=== PATIENT | male | born 1995 | race Two or more races ===

== ENCOUNTER 2025-03-12 10:26 | Emergency (ER) | payer SELFPAY ==
[2025-03-12 10:27] VITALS: BMI 35.4
[2025-03-12 10:47] VITALS: BP 147/86; PULSE 49; RESP 17; TEMP 36.8; O2SAT 98
--- NOTE | 2025-03-12 10:54 | PD.EDDENTL ---
ED Dental RME/HPI General Chief complaint: Dental/Oral/Throat Stated complaint: SHARP, THROBBING PAIN L) SIDE OF MOUTH Time Seen by Provider: 03/12/25 10:33 Arrival date/time: 03/12/25 10:26 29-year-old male presents to the emergency department today for complaints of left upper dental pain patient reports he did see a dentist reports they need to pull his tooth. Patient reports he been taking pain medication at home without relief of his pain Limitations: no limitations Related Data Previous Rx's ?Medication ?Instructions ?Recorded diphenhydramine HCl 25 mg capsule 25 mg PO Q8H PRN allergic symptoms 04/27/23 (Benadryl) #30 caps amoxicillin 875 mg-potassium 1 tab PO BID 7 days #14 tabs 03/12/25 clavulanate 125 mg tablet hydrocodone 5 mg-acetaminophen 325 1 tab PO BID PRN pain #6 tabs 03/12/25 mg tablet ibuprofen 800 mg tablet 800 mg PO TID PRN pain #30 tabs 03/12/25 Allergies Allergy/AdvReac Type Severity Reaction Status Date / Time No Known Allergies Allergy Verified 03/12/25 10:30 Review of Systems Review of Systems Systems Reviewed: All systems reviewed, normal except as documented Constitutional Constitutional: Reports system reviewed and no additional complaints, except as documented, Denies fever(s) and Denies headache(s) Eyes Eyes: Reports system reviewed and no additional complaints, except as documented and Denies blurry vision ENT Ears, Nose, Mouth, and Throat: Reports system reviewed and no additional complaints, except as documented, Reports dental pain, Reports facial pain, Denies headache(s), Denies nasal congestion and Denies nasal discharge Cardiovascular Cardiovascular: Reports system reviewed and no additional complaints, except as documented, Denies chest pain and Denies dyspnea Respiratory Respiratory: Reports system reviewed and no additional complaints, except as documented, Denies chest congestion, Denies cough and Denies dyspnea Gastrointestinal Gastrointestinal: Reports system reviewed and no additional complaints, except as documented and Denies abdominal pain Integumentary/Breasts Skin/Breast: Reports system reviewed and no additional complaints, except as documented and Denies rash Neurologic Neurologic: Reports system reviewed and no additional complaints, except as documented, Reports as per HPI and Denies headache(s) Past Medical History Social History SMOKING STATUS: Current some day smoker ED Exam General Limitations: Present no limitations General appearance: Present alert and in no apparent distress Head Head exam: Present atraumatic, normocephalic and normal inspection Eye Eye exam: Present normal appearance, PERRL and EOMI ENT ENT exam: Present normal oropharynx and mucous membranes moist Expanded ENT Exam Teeth exam: Present fractured tooth # and dental tenderness # Neck Neck exam: Present normal inspection, full ROM and trachea midline Chest Chest inspection: Present normal inspection and symmetric chest wall rise Respiratory Respiratory exam: Present normal lung sounds bilaterally Cardiovascular Cardiovascular exam: Present regular rate, normal rhythm and normal heart sounds Abdominal Exam Abdominal exam: Present soft and normal bowel sounds Extremities Exam Extremities exam: Present normal inspection and full ROM Back Exam Back exam: Present normal inspection and full ROM Neurological Exam Neurological exam: Present alert, oriented X3 and CN II-XII intact Psychiatric Psychiatric exam: Present normal affect and normal mood Skin Skin exam: Present warm, dry, intact and normal color Course Quality Measures none Vital Signs Vital signs: Vital Signs Temperature 98.3 F 03/12/25 10:47 Pulse Rate 49 L 03/12/25 10:47 Respiratory Rate 17 03/12/25 10:47 Blood Pressure 147/86 H 03/12/25 10:47 Pulse Oximetry (%) 98 03/12/25 10:47 Oxygen Delivery Method Room Air 03/12/25 10:47 O2 saturation 98% room air within normal limits Dental / Oral MDM Narrative MDM Narrative:: 29-year-old male presents to the emergency department today for complaints of left upper dental pain patient reports he did see a dentist reports they need to pull his tooth. Patient reports he been taking pain medication at home without relief of his pain On exam patient well-appearing patient does not appear ill or toxic patient is no facial swelling no difficulty swallowing or breathing On exam patient has a fractured tooth I suspect this is the reason for his pain tooth #16. Patient will be treated with a course of antibiotics and pain medication Patient instructed to follow-up with dentist soon as possible Patient data External records reviewed:: [facility] previous records Clinical information provided by:: patient Social determinants that could affect healthcare access:: none Patient has the following chronic illnesses:: None How is presenting disease/condition affected by chronic disease/condition?: no chronic disease Evaluation data The following diagnostics were reviewed and interpreted by me:: other (specify) (N/A) Lab and/or radiology exams considered but not ordered:: Considered not indicated Interpretation Summary: N/A Medications / Prescriptions Medications or Prescriptions considered but not ordered:: Given Medication administrations:: Given Consultations Consultation(s) initiated? (list below): No Diagnosis Dental Differential Diagnosis: gingival abscess, dental caries, toothache and dental abscess Most likely diagnosis given after review of the tests above:: Dental abscess Admission Indicated Admission indicated?: not indicated Admission Request Was there a request for admission?: No Disposition Plan Disposition Plan: Discharge Discharge Attestation Discharge Attestation: The patient and all family members were given an opportunity to ask questions and understood the discharge instructions. Discharge instructions specifically effects, indications for sooner follow up or return to the emergency department, and the expected course of current diagnosis. Patient condition: Stable Discharge Plan Plan Patient Disposition: HOME (Self Care) Discharge Disposition comment: Stable Prescriptions/Referrals Prescriptions/Med Rec: New ibuprofen 800 mg tablet 800 mg PO TID PRN (Reason: pain) Qty: 30 0RF hydrocodone-acetaminophen 5-325 mg tablet 1 tab PO BID MDD 10 PRN (Reason: pain) Qty: 6 0RF amoxicillin-pot clavulanate 875-125 mg tablet 1 tab PO BID 7 Days Qty: 14 0RF No Action diphenhydramine HCl [Benadryl] 25 mg capsule 25 mg PO Q8H PRN (Reason: allergic symptoms) Qty: 30 0RF Problem List Clinical Impression: Toothache Patient/Caregiver Discharge Instructions Education Materials: ED Dental Pain Additional Instructions: Please follow-up with dentist as discussed for worsening symptoms return immediately Print Language: Ivorian Stand Alone Forms: [facility] Award Info., Patient Portal Info Letter PA/[facility] Supervising Physician PA/[facility] Supervising Physician: Dr. guy
== END 2025-03-12 14:25 | disposition home or self-care (01) ==
LOC: SERX 11:19
PROVIDERS: Emergency Provider Nurse Practitioner Primary Care
DX: K08.89 Other specified disorders of teeth and supporting structures (principal)
CPT/HCPCS: 99283